=== PATIENT | female | born 1995 | race American Indian/Alaskan Native ===

== ENCOUNTER 2018-01-02 22:18 | Emergency (ER) | payer SELFPAY ==
[2018-01-02 23:15] VITALS: BP 108/75
[2018-01-03] MEDS ORDERED: ZOFRAN IV ONE (00:06)
[2018-01-03] MEDS ORDERED: NACL 0.9% 1000 ML 1,000 ML IV ONE (00:06)
[2018-01-03 00:31] LABS: Basophils % (Auto) 0.5 % (0.0-1.8); Eosinophils % (Auto) 0.4 % (0.0-4.3); Hematocrit 38.3 % (30.3-42.9); Hemoglobin 12.7 gm/dl (10.1-14.3); Lymphocytes # (Auto) 1.1 K/mm3 (1.2-5.4); Lymphocytes % (Auto) 11.9 % (13.4-35.0); Mean Corpuscular HGB Conc 33 % (30-34); Mean Corpuscular Hemoglobin 30 pg (28-32); Mean Corpuscular Volume 89 fl (79-97); Monocytes # (Auto) 0.5 K/mm3 (0.0-0.8); Monocytes % (Auto) 5.2 % (0.0-7.3); Platelet Count 375 K/mm3 (140-440); Red Blood Count 4.29 M/mm3 (3.65-5.03); Red Cell Distribution Width 16.5 % (13.2-15.2)
--- NOTE | 2018-01-03 00:35 | Emergency Department Report ---
ED N/V/D HPI - General Chief complaint: Nausea/Vomiting/Diarrhea Stated complaint: NAUSEA/VOMITING Time Seen by Provider: 01/02/18 23:49 Source: patient Mode of arrival: Ambulatory Limitations: No Limitations - History of Present Illness Initial comments: 22-year-old -Martiniquais female is 11 weeks comes in for severe nausea and vomiting with visible blood in vomit per patient. Patient reports she is 1 para 0. Patient reports she hasn't had no care, decrease in appetite, increasing heartburn, she also complains of dizziness. She denies any fevers no chills no back pain no abdominal pain. She reports she has a past medical history of anemia and anxiety. Patient reports that she was seen in the emergency room at another hospital about 3 weeks ago and was prescribed Zofran and a sleeping medication. She reports nothing has worked for her nausea and vomiting. MD complaint: nausea, vomiting -: week(s) (1) Description of Vomiting: blood-streaked Associated Abdominal Pain: No Worsens with: eating - Related Data Previous Rx's Medication Instructions Recorded Last Taken Type Doxylamine Succinate [Unisom] 25 mg PO QDAY #15 tablet 01/03/18 Unknown Rx Vits96/Iron Fum/Folic 1 each PO QDAY #90 tablet 01/03/18 Unknown Rx [ Tablet] Pyridoxine HCl (Vitamin B6) 25 mg PO QDAY #15 tablet 01/03/18 Unknown Rx [Pyridoxine HCl] Allergies Allergy/AdvReac Type Severity Reaction Status Date / Time No Known Allergies Allergy Verified 04/23/13 12:33 ED Review of Systems ROS: Stated complaint: NAUSEA/VOMITING Other details as noted in HPI Constitutional: denies: chills, fever Eyes: denies: eye pain, eye discharge, vision change ENT: denies: ear pain, throat pain Respiratory: denies: cough, shortness of breath, wheezing ED Past Medical Hx - Past Medical History Hx Psychiatric Treatment: No - Social History Smoking Status: Never Smoker Substance Use Type: None - Medications Home Medications: Home Medications Medication Instructions Recorded Confirmed Last Taken Type Doxylamine Succinate [Unisom] 25 mg PO QDAY #15 tablet 01/03/18 Unknown Rx Vits96/Iron Fum/Folic 1 each PO QDAY #90 tablet 01/03/18 Unknown Rx [ Tablet] Pyridoxine HCl (Vitamin B6) 25 mg PO QDAY #15 tablet 01/03/18 Unknown Rx [Pyridoxine HCl] ED Physical Exam - General Limitations: No Limitations General appearance: alert, in no apparent distress - Head Head exam: Present: atraumatic, normocephalic - Eye Eye exam: Present: normal appearance - ENT ENT exam: Present: mucous membranes moist - Neck Neck exam: Present: normal inspection - Respiratory Respiratory exam: Present: normal lung sounds bilaterally. Absent: respiratory distress - Cardiovascular Cardiovascular Exam: Present: regular rate, normal rhythm. Absent: systolic murmur, diastolic murmur, rubs, gallop - GI/Abdominal GI/Abdominal exam: Present: soft, normal bowel sounds - Extremities Exam Extremities exam: Present: normal inspection - Back Exam Back exam: Present: normal inspection - Neurological Exam Neurological exam: Present: alert, oriented X3 - Psychiatric Psychiatric exam: Present: normal affect, normal mood - Skin Skin exam: Present: warm, dry, intact, normal color. Absent: rash ED Course Vital Signs 01/02/18 01/02/18 23:11 23:26 Temperature 97.9 F 97.9 F Pulse Rate 69 68 Respiratory 18 18 Rate Blood Pressure 108/75 108/75 O2 Sat by Pulse 100 100 Oximetry - Reevaluation(s) Reevaluation #1: 01/03/18 03:01 Patient reports she feels much better after having fluids and antinausea medication. ED Medical Decision Making - Lab Data Result diagrams: 01/03/18 00:23 01/03/18 00:23 - Medical Decision Making Patient has been evaluated by this provider in fast track. IV insertion, CBC, CMP. Normal saline 1 L Zofran 4 mg IV. Patient was able to eat ice chips without vomiting. We'll discharge patient home to continue with her Zofran and to advance her diet as tolerated. Critical care attestation.: If time is entered above; I have spent that time in minutes in the direct care of this critically ill patient, excluding procedure time. ED Disposition Clinical Impression: Hyperemesis gravidarum Disposition: DC-01 TO HOME OR SELFCARE Is pt being admited?: No Does the pt Need Aspirin: No Condition: Stable Instructions: Acute Nausea and Vomiting (ED) Additional Instructions: Please take medication as prescribed. It's very importantly to follow up with OB I have also order vitamins. I have listed several obstetricians below for your convenience. Prescriptions: Doxylamine Succinate [Unisom] 25 mg PO QDAY #15 tablet Vits96/Iron Fum/Folic [ Tablet] 1 each PO QDAY #90 tablet Pyridoxine HCl (Vitamin B6) [Pyridoxine HCl] 25 mg PO QDAY #15 tablet Referrals: PRIMARY CARE [Primary Care Provider] - 3-5 Days [facility] [Provider Group] - 3-5 Days [facility], [facility] [Provider Group] - 3-5 Days [facility] [Provider Group] - 3-5 Days Forms: Work/School Release Form(ED)
[2018-01-03 01:07] LABS: Alanine Aminotransferase 22 units/L (7-56); BUN/Creatinine Ratio 10; Blood Urea Nitrogen 4 mg/dL (7-17); Calcium 9.1 mg/dL (8.4-10.2); Hemolysis Index 14; Lipase 11 units/L (13-60)
== END 2018-01-03 03:55 | disposition home or self-care (01) ==
LOC: ED 22:18
DX: O21.0 Mild hyperemesis gravidarum (principal); O26.891 Other specified pregnancy related conditions, first trimester; R42 Dizziness and giddiness; Z3A.11 11 weeks gestation of pregnancy
CPT/HCPCS: 36415; 80053; 83690; 84702; 85025; 96361; 96374; 99283; J2405; J7030

== ENCOUNTER 2018-03-24 15:18 | Outpatient (CLI) | payer MEDICAID ==
[2018-03-24 16:27] VITALS: BP 108/65
[2018-03-24] MEDS ORDERED: LACTATED RINGERS 500 ML IV ONE (16:28)
[2018-03-24 17:17] LABS: Bacteria,Urine 1+ /HPF (Negative); Bilirubin,Urine NEG (Negative); Blood,Urine NEG (Negative); Color,Urine Straw (Yellow); Protein,Urine <15 mg/dL mg/dL (Negative); Urobilinogen,Urine < 2.0 mg/dL (<2.0)
[2018-03-24 17:26] LABS: Basophils % (Auto) 0.4 % (0.0-1.8); Eosinophils # (Auto) 0.3 K/mm3 (0.0-0.4); Eosinophils % (Auto) 3.6 % (0.0-4.3); Hematocrit 35.2 % (30.3-42.9); Hemoglobin 11.8 gm/dl (10.1-14.3); Lymphocytes # (Auto) 2.1 K/mm3 (1.2-5.4); Lymphocytes % (Auto) 26.7 % (13.4-35.0); Mean Corpuscular HGB Conc 34 % (30-34); Mean Corpuscular Volume 91 fl (79-97); Monocytes # (Auto) 0.8 K/mm3 (0.0-0.8); Monocytes % (Auto) 10.6 % (0.0-7.3); Platelet Count 262 K/mm3 (140-440); Red Blood Count 3.87 M/mm3 (3.65-5.03); Red Cell Distribution Width 15.5 % (13.2-15.2)
[2018-03-24 19:21] LABS: BUN/Creatinine Ratio 10; Blood Urea Nitrogen 4 mg/dL (7-17); Calcium 9.2 mg/dL (8.4-10.2); Hemolysis Index 3
== END 2018-03-24 18:39 | disposition home or self-care (01) ==
LOC: TRG 15:18
PROVIDERS: ATTEND Obstetrics & Gynecology
DX: O47.02 False labor before 37 completed weeks of gestation, second trimester (principal); Z3A.22 22 weeks gestation of pregnancy; Z87.891 Personal history of nicotine dependence
CPT/HCPCS: 36415; 59025; 80048; 81001; 85025